=== PATIENT | male | born 1985 | race Caucasian/White ===

== ENCOUNTER 2016-05-23 16:53 | Emergency (ER) | payer OTHER, MEDICAID ==
[2016-05-23 17:03] VITALS: BP 109/60; PULSE 74; RESP 16; O2SAT 95
--- NOTE | 2016-05-23 17:20 | EDPHY ---
H & P Time Seen by Provider: 05/23/16 17:15 HPI/ROS: CHIEF COMPLAINT: Right radial wrist pain HISTORY OF PRESENT ILLNESS: 31-year-old male, right-hand dominant, states that 5 days ago he was at work lifting heavy object and felt immediate pain in his right wrist radial aspect. He has noticed a new area of bulging on the volar aspect of the right radial wrist and pain. He went to an urgent care in [place] today but was told that he needed to go to the emergency department [facility] by his in [facility] ear no for comes here. He is currently wearing a Velcro thumb spica splint placed by this urgent care PHYSICAL EXAM (Prior to examination, patient consented to physical exam, hands were washed and my usual and customary physical exam procedures followed) 1) GENERAL: Well-developed, well-nourished, alert and oriented. Appears to be in no acute distress. 2) HEAD: Normocephalic 3) HEENT: Pupils equal, round, reactive to light bilaterally. 4) LUNGS: Breathing comfortably. 5) MUSCULOSKELETAL: Tender to palpation right anatomic snuffbox with noted volar tender mass. No signs of infection, cellulitis. Soft compartments. Normal coloration. 6) SKIN: soft. No discoloration. No ecchymosis. 7) VASCULAR: pulses and cap refill present are brisk 8) NEUROLOGIC: Radial, ulnar, median nerve function intact with no deficits appreciated on exam DIFFERENTIAL DIAGNOSIS: in no particular order including but not limited to fracture, sprain, compartment syndrome Xray of the right wrist interpreted by myself: no definitive acute osseous abnormality Smoking Status: Never smoked Constitutional: Initial Vital Signs Heart Rate 74 05/23/16 16:57 Respiratory Rate 16 05/23/16 16:57 Blood Pressure 109/60 05/23/16 16:57 O2 Sat (%) 95 05/23/16 16:57 O2 Delivery Mode Room Air Allergies/Adverse Reactions: No Known Allergies Allergy (Verified 05/23/16 16:57) Home Medications: Medication Instructions Recorded Hydrocodone/APAP 5/325 [Bailey 1 tab PO Q6 PRN #7 tab 05/23/16 5/325 (RX)] Ibuprofen [Motrin (*)] 600 mg PO Q6 #15 tab 05/23/16 MDM/Departure - [facility] ED Course/Re-evaluation: Re-evaluation with serial exams. Re-evaluated after imaging. He is neurovascularly intact. Soft compartments. No evidence of compartment syndrome. Recommend follow up with Orthopedics and his work comp provider. Usual and customary orthopedic precautions instructions provided. - Depart Disposition: Home, Routine, Self-Care Clinical Impression: Right wrist sprain Qualifiers: Encounter type: initial encounter Qualified Code(s): S63.501A - Unspecified sprain of right wrist, initial encounter Condition: Good Instructions: Wrist Injury (ED) Additional Instructions: Return to the ER immediately if you experience discoloration, have worsening pain, numbness, tingling, or any other symptoms that concern you. If you received x-rays in the emergency department today, be advised, that ligamentous , tendon, muscular, and other non-bony injury cannot be fully ruled out. Try to keep your affected extremity elevated above the level of your chest, and keep cold packs on the affected area, for the next 48 hours. Recommend you contact your work comp provider 1st Stand Alone Forms: Work Comp Follow Up, Work Excuse, Work Limited Duty Prescriptions: Hydrocodone/APAP 5/325 [Bailey 5/325 (RX)] 1 tab PO Q6 PRN #7 tab PRN Reason: Pain, Severe Ibuprofen [Motrin (*)] 600 mg PO Q6 #15 tab Referrals: Kwasi Holt MD [Medical Doctor] - 2-3 days, call for appt. (Dr. Kwasi Holt is an orthopedic surgeon)
== END 2016-05-23 18:15 | disposition home or self-care (01) ==
DX: S63.501A Unspecified sprain of right wrist, initial encounter (principal); X58.XXXA Exposure to other specified factors, initial encounter; Y92.69 Other specified industrial and construction area as the place of occurrence of the external cause; Y99.0 Civilian activity done for income or pay; Y93.89 Activity, other specified

== ENCOUNTER 2016-06-27 13:23 | Emergency (ER) | payer OTHER, MEDICAID ==
[2016-06-27 13:30] VITALS: RESP 16
--- NOTE | 2016-06-27 14:25 | EDPHY ---
H & P Time Seen by Provider: 06/27/16 13:31 HPI/ROS: CHIEF COMPLAINT: Right wrist pain HISTORY OF PRESENT ILLNESS: 31-year-old male presents emergency department complaining of acute on chronic right wrist pain. Patient was lifting something heavy at work 1 month ago and developed pain and bump to the volar aspect of right wrist. He was seen in the emergency department, had a normal x- ray and was told to follow up worker's compensation and orthopedist. Patient reports he is having a garcía with worker's compensation, he states he saw Dr. Holt and has another appointment with him in 1 week though he reports he wakes up every night due to pain and was requesting another referral. Patient denies numbness or tingling in his hand, he reports his wrist is worse with movement, no fevers. Pain is moderate in nature. Smoking Status: Never smoked Physical Exam: GEN: Awake, alert, oriented, no acute distress RESP: nl resp effort MSK: Right wrist with full range of motion, raised cyst like structure to volar radial aspect of wrist, no erythema, 2+ radial pulses, sensation intact to light touch SKIN: No break in skin Constitutional: Initial Vital Signs Temperature (C) 36.5 C 06/27/16 13:27 Heart Rate 84 06/27/16 13:27 Respiratory Rate 16 06/27/16 13:27 Blood Pressure 133/78 H 06/27/16 13:27 O2 Sat (%) 95 06/27/16 13:27 O2 Delivery Mode Room Air Allergies/Adverse Reactions: No Known Allergies Allergy (Verified 06/27/16 13:25) Home Medications: Medication Instructions Recorded Hydrocodone/APAP 5/325 [Ewing 1 tab PO Q4H PRN #7 tab 06/27/16 5/325] MDM/Departure - Depart Disposition: Home, Routine, Self-Care Clinical Impression: Ganglion cyst of wrist Qualifiers: Laterality: right Qualified Code(s): M67.431 - Ganglion, right wrist Condition: Good Instructions: Ganglion Cysts (ED) Additional Instructions: Rest, ice, elevate, take 600 mg of ibuprofen every 8 hours for 3-5 days for pain , take Ewing once at night for severe pain. Follow up with the hand doctor at 1st available appointment. Return to the emergency department for any numbness or tingling in your hand, fevers, new symptoms or concerns. Prescriptions: Hydrocodone/APAP 325 [Ewing 5/325] 1 tab PO Q4H PRN #7 tab PRN Reason: Pain, Moderate Referrals: Nitin Tejada MD [Medical Doctor] - As per Instructions (Hand doctor on-call )
[2016-06-27 14:44] VITALS: BP 131/82; PULSE 62; TEMP 97.9; O2SAT 96
== END 2016-06-27 14:44 | disposition home or self-care (01) ==
DX: M67.431 Ganglion, right wrist (principal)

== ENCOUNTER 2016-08-29 06:42 | Day surgery (SDC) | payer MEDICAID, OTHER ==
[~2016-08-29 06:42] MED LIST: ceFAZolin 2 GM/DEXTROSE 100 ML IV ONE
--- NOTE | 2016-08-29 06:42 | PDHPUP ---
History & Physical Update H&P update statement: This history and physical update is based on an assessment of the patient which was completed after admission or registration (within 24 hours), but prior to the surgery/procedure.
[2016-08-29] MEDS ORDERED: LR 1,000 ML IV ONE (06:54)
[2016-08-29] MEDS ORDERED: LIDOCAINE 1% 2 ML INJ ID PRN (06:54)
[2016-08-29] MEDS ORDERED: BUPIVACAINE 0.5% 30 ML SDV ONE (06:57)
[2016-08-29] MEDS ORDERED: MIDAZOLAM 2 MG/2 ML VIAL ONE (07:01)
[2016-08-29] MEDS ORDERED: MIDAZOLAM 2 MG/2 ML VIAL IVP ONE (07:02)
--- NOTE | 2016-08-29 07:03 | PDANEPAE ---
ANE History of Present Illness Patient presents for surgery ANE Past Medical History - Cardiovascular History Hx Hypertension: No Hx Arrhythmias: No Hx Chest Pain: No Hx Coronary Artery / Peripheral Vascular Disease: No Hx CHF / Valvular Disease: No Hx Palpitations: No - Pulmonary History Hx COPD: No Hx Asthma/Reactive Airway Disease: No Hx Recent Upper Respiratory Infection: No Hx Oxygen in Use at Home: No Hx Sleep Apnea: No Sleep Apnea Screening Result - Last Documented: Negative - Neurologic History Hx Cerebrovascular Accident: No Hx Seizures: No - Endocrine History Hx Diabetes: No - Renal History Hx Renal Disorders: No - Liver History Hx Hepatic Disorders: No - Neurological & Psychiatric Hx Hx Neurological and Psychiatric Disorders: No - Cancer History Hx Cancer: Yes Cancer History Comment: TESTICULAR 09/2013 - Congenital Disorder History Hx Congenital Disorders: No - GI History Hx Gastrointestinal Disorders: No - Other Health History Other Health History: R ganglion cyst - Chronic Pain History Chronic Pain: No - Surgical History Prior Surgeries: L testicle excision 2013. RT LEG REMVL VARICOSE VEIN ANE Review of Systems - Exercise capacity METS (RN): 4 METS ANE Patient History - Allergies Allergies/Adverse Reactions: No Known Allergies Allergy (Verified 08/17/16 14:00) - Home Medications Home Medications: Acyclovir 08/17/16 [Last Taken Unknown] - Smoking Hx Smoking Status: Never smoked - Family Anes Hx Family Hx Anesthesia Complications: NEG ANE Labs/Vital Signs - Vital Signs Height: 170.18 cm Weight: 68.039 kg ANE Physical Exam - Airway Mallampati Score: Class 2 Mouth exam: normal dental/mouth exam - Pulmonary Pulmonary: no respiratory distress - Cardiovascular Cardiovascular: regular rate and rhythym - ASA Status ASA Status: I ANE Anesthesia Plan Anesthesia Plan: GA with mask (rba discussed)
[2016-08-29] MEDS ORDERED: CEFAZOLIN 2 GM/DEXTROSE/100 ML BAG IV ONE (07:08)
[2016-08-29] MEDS ORDERED: fentaNYL 100 MCG/2 ML INJ ONE (07:09)
[2016-08-29] MEDS ORDERED: PROPOFOL/EMULSION 500 MG/50 ML BOTTLE IV ONE (07:09)
[2016-08-29] MEDS ORDERED: ONDANSETRON 4 MG/2 ML VIAL ONE (07:24)
[2016-08-29] MEDS ORDERED: DEXAMETHASONE 4 MG/ML VIAL ONE (07:24)
[2016-08-29] MEDS ORDERED: NALOXONE HCL 0.4 MG/ML INJ IVP PRN (07:43)
[2016-08-29] MEDS ORDERED: ONDANSETRON 4 MG/2 ML VIAL IVP PRN (07:43)
[2016-08-29] MEDS ORDERED: fentaNYL 100 MCG/2 ML INJ IVP PRN (07:43)
--- NOTE | 2016-08-29 08:15 | POSTANESTH ---
Post Anesthetic Evaluation Cardiovascular Status: Normal, Stable Respiratory Status: Normal, Stable Level of Consciousness/Mental Status: Mildly Sleepy, Arousable Pain Control: Adequate, Prn Tx Ordered Nausea/Vomiting Control: Adequate, Prn Tx Ordered Complications Possibly Related to Anesthesia: None Noted
[2016-08-29] MEDS ORDERED: oxyCODONE IR 5 MG TAB ONE (08:35)
[2016-08-29] MEDS: oxyCODONE IR 5 MG TAB PO PRN ×2 (08:36→09:30)
[2016-08-29 09:49] VITALS: BP 98/66; PULSE 63; RESP 16; TEMP 97.9; O2SAT 95
== END 2016-08-29 09:45 | disposition home or self-care (01) ==
LOC: FSGY 06:42
PROVIDERS: ATTEND Orthopaedic Surgery
PROC: 0MB Bursae and Ligaments, Excision (ICD-10-PCS; principal; 2016-08-29 07:15)
DX: M67.431 Ganglion, right wrist (principal)
CPT/HCPCS: J0690; J1100; J2250; J2405; J2704; J3010